=== PATIENT | male | born 1980 | race Caucasian/White ===

== ENCOUNTER 2019-08-31 11:45 | Emergency (ER) | payer BC ==
[~2019-08-31] VITALS: Ht 185.4 cm; Wt 93.2 kg
[2019-08-31 12:10] LABS: EOS # 0.5 (0.04-0.40); EOS % 6.9 % (0.0-4.0); HEMATOCRIT 45.6 % (42.0-52.0); HEMOGLOBIN 15.5 g/dL (13.5-18.0); LYMPH# 2.5 (1.50-4.00); MEAN CELL VOLUME 90 fl (78-100); MEAN CORPUSCULAR HEMOGLOBIN 31 pg (27-31); MEAN CORPUSCULAR HGB CONC 34 g/dL (33-37); MEAN PLATELET VOLUME 9.8 fl (7.4-10.4); MONO # 0.4 (0.20-0.80); NEU # 3.1 (1.40-6.50); PLATELET COUNT 170 K/mm3 (130-400); RED BLOOD COUNT 5.08 M/mm3 (4.20-5.60); RED CELL DISTRIBUTION WIDTH 12.5 % (11.5-14.5); WHITE BLOOD COUNT 6.5 K/mm3 (4.8-10.8)
[2019-08-31 12:15] LABS: POTASSIUM 3.7 mmol/L (3.5-5.1); SODIUM 140 mmol/L (136-145)
[2019-08-31 12:16] LABS: ALBUMIN 4.5 g/dL (3.5-5.0)
[2019-08-31 12:17] LABS: CALCIUM 9.6 mg/dL (8.3-10.5)
[2019-08-31 12:19] LABS: GLUCOSE 87 mg/dL (75-110); TOTAL PROTEIN 7.7 g/dL (6.4-8.3)
[2019-08-31 12:20] LABS: CARBON DIOXIDE 26 mmol/L (22-29); TOTAL BILIRUBIN 0.6 mg/dL (0.2-1.2)
[2019-08-31 12:24] LABS: AST-SGOT 17 U/L (5-34)
[2019-08-31 12:26] LABS: ALT/SGPT 18 U/L (0-55)
[2019-08-31 12:27] LABS: LIPASE 28 U/L (8-78)
[2019-08-31 12:34] LABS: D-DIMER 0.1 mg/L FEU (0.15-0.50)
[2019-08-31 12:35] LABS: TROPONIN-I < 0.03 ng/mL (<0.030)
[2019-08-31] MEDS ORDERED: PRILOSEC 20MG20 MG PO (13:14)
[2019-08-31 13:20] VITALS: BP 123/66
== END 2019-08-31 13:20 | disposition home or self-care (01) ==
LOC: ED 11:45
PROVIDERS: Nurse Practitioner Primary Care
DX: R07.89 Other chest pain (principal); Z88.0 Allergy status to penicillin

== ENCOUNTER → 2019-08-31 | Outpatient (CLI) | payer BC ==
[~2019-08-31] MED LIST: PRILOSEC 20MG20 MG PO
[2019-08-31 13:20] VITALS: BP 123/66
== END ==
LOC: AMSURD 11:10
DX: M79.602 Pain in left arm (principal)

== ENCOUNTER → 2019-09-10 | Outpatient (CLI) | payer BC ==
[2019-08-31 13:20] VITALS: BP 123/66
== END ==
LOC: LAB 08:50
DX: Z00.00 Encounter for general adult medical examination without abnormal findings (principal)

== ENCOUNTER → 2019-09-21 | Outpatient (CLI) | payer BC ==
[2019-08-31 13:20] VITALS: BP 123/66
== END ==
LOC: CARDREHAB 09:41 → CARDLAB 11:54
DX: R07.89 Other chest pain (principal)

== ENCOUNTER → 2022-06-01 | Outpatient (CLI) | payer BC | LOC: RAD 13:53 | DX: S30.0XXA Contusion of lower back and pelvis, initial encounter (principal) ==

== ENCOUNTER → 2022-07-01 | Outpatient (CLI) | payer BC ==
[2022-07-01 10:42] LABS: BASO # 0.05 K/mm3 (0.02-0.10); EOS # 0.61 K/mm3 (0.04-0.40); EOS % 9.5 % (0.0-4.0); HEMATOCRIT 44.3 % (42.0-52.0); HEMOGLOBIN 15.1 g/dL (13.5-18.0); LYMPH# 2.29 K/mm3 (1.50-4.00); MEAN CELL VOLUME 91 fl (78-100); MEAN CORPUSCULAR HEMOGLOBIN 31 pg (27-31); MEAN CORPUSCULAR HGB CONC 34 g/dL (33-37); MEAN PLATELET VOLUME 9.4 fl (7.4-10.4); MONO # 0.52 K/mm3 (0.20-0.80); NEU # 2.93 K/mm3 (1.40-6.50); PLATELET COUNT 171 K/mm3 (130-400); RED BLOOD COUNT 4.88 M/mm3 (4.20-5.60); RED CELL DISTRIBUTION WIDTH 12.6 % (11.5-14.5); WHITE BLOOD COUNT 6.4 K/mm3 (4.8-10.8)
[2022-07-01 10:46] LABS: ALBUMIN 4.2 g/dL (3.5-5.0); POTASSIUM 3.7 mmol/L (3.5-5.1)
[2022-07-01 10:47] LABS: CALCIUM 8.9 mg/dL (8.3-10.5)
[2022-07-01 10:48] LABS: TOTAL PROTEIN 7.3 g/dL (6.4-8.3)
[2022-07-01 10:50] LABS: TOTAL BILIRUBIN 0.3 mg/dL (0.2-1.2)
== END ==
LOC: LAB 10:24
PROVIDERS: Internal Medicine
DX: Z00.00 Encounter for general adult medical examination without abnormal findings (principal); Z12.5 Encounter for screening for malignant neoplasm of prostate; S30.0XXD Contusion of lower back and pelvis, subsequent encounter; F41.1 Generalized anxiety disorder